=== PATIENT | male | born 1965 | race Caucasian/White ===

== ENCOUNTER 2016-03-08 16:08 | Outpatient (CLI) | payer BC, OTHER ==
[~2016-03-08 16:08] MED LIST: ONDA-42 SL; PENI500T PO
== END 2016-03-08 16:30 | disposition home or self-care (01) ==
LOC: SLEEP 16:08
PROVIDERS: ATTEND Nurse Practitioner Family
DX: G47.30 Sleep apnea, unspecified (principal); R06.83 Snoring; I10 Essential (primary) hypertension

== ENCOUNTER 2016-03-11 11:30 | Outpatient (CLI) | payer BC ==
[~2016-03-11] VITALS: Ht 182.9 cm; Wt 91.2 kg
[2016-03-11] MEDS ORDERED: OMEP20TA7 PO (11:50)
[2016-03-11] MEDS ORDERED: CHOL100045 PO (11:53)
[2016-03-11] MEDS ORDERED: NICO1PAT34 TD (11:53)
== END 2016-03-11 12:09 ==
LOC: PREOP 11:30
PROVIDERS: ATTEND Surgery
DX: Z01.818 Encounter for other preprocedural examination (principal); Z12.11 Encounter for screening for malignant neoplasm of colon; K21.9 Gastro-esophageal reflux disease without esophagitis

== ENCOUNTER 2016-03-15 07:31 | Day surgery (SDC) | payer BC, OTHER ==
[~2016-03-15] VITALS: Ht 182.9 cm; Wt 91.2 kg
[~2016-03-15 07:31] MED LIST changes: +CHOL100045 PO; +NICO1PAT34 TD; +OMEP20TA7 PO
[2016-03-15] MEDS ORDERED: NS IV 1000 ML 1,000 ML ONE (07:39)
--- NOTE | 2016-03-15 08:05 | Progress Note-Pre Operative ---
Pre-Operative Progress Note H&P Reviewed The H&P was reviewed, patient examined and no changes noted. Date H&P Reviewed: Mar 15, 2016 Time H&P Reviewed: 08:05 Pre-Operative Diagnosis: screening colon, gerd GEETA CALVILLO DO Mar 15, 2016 08:05
[2016-03-15 08:08] VITALS: BP 106/78
[2016-03-15] MEDS ORDERED: NS IV 1000 ML 1,000 ML IV STA (08:11)
[2016-03-15] MEDS ORDERED: NALOXONE 0.4 MG/ML 1 ML (NARCAN) VIAL IVP PRN (08:15)
[2016-03-15] MEDS ORDERED: LIDOCAINE JELLY 2% (XYLOCAINE) 5 ML TUBE MM PRN (08:15)
[2016-03-15] MEDS ORDERED: HURRICAINE EXT TUBE (BENZOCAINE) XX ONE (08:15)
[2016-03-15] MEDS ORDERED: FLUMAZENIL (ROMAZICON) 0.1 MG/ML 5 ML VIAL INJ PRN (08:15)
[2016-03-15] MEDS ORDERED: MIDAZOLAM 2 MG/2 ML (VERSED) VIAL ONE (08:42)
[2016-03-15] MEDS ORDERED: PROPOFOL INJECTION 50 ML IV ONE (08:42)
[2016-03-15] MEDS ORDERED: SUCR1TAB36 PO (09:28)
[2016-03-15] MEDS ORDERED: PANT40TA2 PO (09:28)
--- NOTE | 2016-03-15 09:28 | Progress Note-Post Operative ---
Post-Operative Progess Note Pre-Operative Diagnosis screening colon, gerd Post-Operative Diagnosis healing antral ulcers, gastritis, hiatal hernia, colon polyps Post-Op Procedure Note Date of Procedure: Mar 15, 2016 Name of Procedure: egd c biopsy and colonoscopy with hot bx polypectomy x 2 Procedure Note/Findings see note Anesthesia Type per side guider Estimated blood loss (mL): none Specimen(s) collected antrum, colon polyps GEETA CALVILLO DO Mar 15, 2016 09:28
--- NOTE | 2016-03-15 09:31 | Discharge Inst-Simple/Standard ---
Discharge Inst-Standard Discharge Medications New, Converted or Re-Newed RX: Transmitted to Pharmacy Patient Instructions/Follow Up Plan of Care/Instructions/FU: Follow up with Dr. Sosa in 2-3 weeks Take medication as directed. Will need repeat colonoscopy in 5 years or sooner if any changes in current condition Activity as Tolerated: Yes Discharge Diet: No Restrictions SUJATHA HUNTER APRN Mar 15, 2016 09:31
[2016-03-15 09:50] VITALS: BP 107/75
[2016-03-15 10:20] VITALS: BP 117/72
[2016-03-15 11:00] VITALS: BP 117/72
--- NOTE | 2016-03-15 13:48 | OPERATIVE REPORT ---
PROCEDURE PHYSICIAN: GEETA CALVILLO DATE OF PROCEDURE: 03/15/2016 PREOPERATIVE DIAGNOSIS: Screening colonoscopy. GERD. POSTOPERATIVE DIAGNOSIS: 1. Healing antral ulcers. 2. Gastritis. 3. Hiatal hernia. 4. Colon polyps. PROCEDURE: 1. EGD with biopsy of the antrum. 2. Colonoscopy with hot biopsy polypectomy x 2. SURGEON: Ian. ANESTHESIA: Per [employer]. ESTIMATED BLOOD LOSS: None. COMPLICATIONS: None. INDICATIONS: The patient is a 50-year-old male who has been having reflux symptoms. He understands the risks and benefits of EGD and also colonoscopy for screening colonoscopy purposes. The patient understands the risks and benefits and wished to proceed. Consent was signed on the chart. PROCEDURE: The patient was taken to the endoscopy suite, placed in left lateral recumbent position. Timeout was performed. The scope was inserted in the mouth, down the esophagus, stomach and into the duodenum without difficulty. There were no polyps, masses, ulcerations within the duodenum. The scope was slowly retracted back to the stomach where appearance of some small antral healing ulcers were present. Biopsy of the antrum was obtained. The scope was also retroflexed noting no other pathology except for a little bit of a sliding hiatal hernia. The scope was returned to its normal position slowly withdrawn back to the distal esophagus, which had normal appearance. There were no erythematous changes. The scope was slowly retracted until completely removed. COLONOSCOPY: Digital rectal exam was performed demonstrating no palpable polyps, masses or ulcerations. The scope was inserted in the rectum, advanced all of the way to the cecum with minimal difficulty. Prep was adequate. The scope was slowly retracted back. There were no polyps, masses, ulcerations within the cecum, ascending colon. In the transverse colon, a small polyp was present which hot biopsy polypectomy was performed. The scope was continued to be slowly retracted back into the descending colon, where there were no polyps, masses or ulcerations. Within the sigmoid colon, there is a small polyp, which hot biopsy polypectomy was performed. The scope was continued be slowly retracted back into the rectum and also retroflexed noting no further pathology. The scope was returned its normal position and slowly withdrawn until completely removed. The patient tolerated the procedure well without any complications. The patient is be on Carafate and Protonix. We will have him follow-up in a few weeks. He will need a repeat colonoscopy in 5 years or if he has any problems prior to that, he should be reevaluated at that time. Job ID: [id number] Dictated Date: 03/15/2016 09:31:33 [employer] Date: 03/15/2016 13:39:14 / rhina
== END 2016-03-15 11:00 | disposition home or self-care (01) ==
LOC: SDC 07:31
PROVIDERS: ATTEND Surgery
DX: Z12.11 Encounter for screening for malignant neoplasm of colon (principal); K63.5 Polyp of colon; K21.9 Gastro-esophageal reflux disease without esophagitis; K44.9 Diaphragmatic hernia without obstruction or gangrene; K29.70 Gastritis, unspecified, without bleeding